=== PATIENT | female | born 1960 | race Caucasian/White ===

== ENCOUNTER 2019-04-24 05:37 | Outpatient (CLI) | payer MEDICARE, MEDICAID ==
[~2019-04-24] VITALS: Ht 170 cm; Wt 90.9 kg
[~2019-04-24 05:37] MED LIST: ESCT10T PO; EZET10TA5 PO; FENO135C PO; HYDR-3583 PO; OMEP40CA36 PO; OXYC-12 PO; TRIA1CAP4 PO; ZOLP10TA5 PO; omeprozole PO
[2019-04-24] MEDS ORDERED: OMEG1CAP24 PO (10:37)
[2019-04-24] MEDS ORDERED: CYCL10TA9 PO (10:37)
[2019-04-24] MEDS ORDERED: EZET10TA5 PO (10:37)
[2019-04-24] MEDS ORDERED: NAPR220C11 PO (10:37)
[2019-04-24] MEDS ORDERED: DOCU100T7 PO (10:37)
[2019-04-24] MEDS ORDERED: FLUO40CA12 PO (10:37)
[2019-04-24] MEDS ORDERED: VITA200T7 PO (10:37)
[2019-04-24] MEDS ORDERED: CBD OIL PO (10:37)
[2019-04-24] MEDS ORDERED: MELA10CA2 PO (10:37)
[2019-04-24] MEDS ORDERED: CHOL200014 PO (10:37)
== END 2019-04-24 10:50 | disposition home or self-care (01) ==
LOC: PREOP 05:37
PROVIDERS: ATTEND Obstetrics & Gynecology
DX: Z01.818 Encounter for other preprocedural examination (principal)

== ENCOUNTER → 2020-11-25 | Outpatient (CLI) | payer MEDICARE ==
[~2020-11-25] VITALS: Ht 170.2 cm; Wt 95.5 kg
[~2020-11-25] MED LIST changes: +BUPR-42 PO; +CBD OIL PO; +CHOL200014 PO; +CYCL10TA9 PO; +DOCU100T7 PO; +EZET10TA17 PO; +FLUO40CA12 PO; +IBUP-1773 PO; +MELA10CA2 PO; +NAPR220C11 PO; +OMEG1CAP24 PO; +OMG1KC PO; +VITA200T7 PO
[2020-11-25 13:08] VITALS: BP 102/71
[2020-11-25 13:51] LABS: BASOPHILS % (AUTO) 1 % (0-10); EOSINOPHILS # (AUTO) 0.2 10^3/uL (0.0-0.3); EOSINOPHILS % (AUTO) 3 % (0-10); HEMATOCRIT 43 % (35-52); HEMOGLOBIN 14.4 g/dL (11.5-16.0); LYMPHOCYTES # (AUTO) 1.9 10^3/uL (1.0-4.0); LYMPHOCYTES % (AUTO) 33 % (12-44); MEAN CORPUSCULAR HEMOGLOBIN 30 pg (25-34); MEAN CORPUSCULAR HGB CONC 33 g/dL (32-36); MEAN CORPUSCULAR VOLUME 88 fL (80-99); MEAN PLATELET VOLUME 9.1 fL (9.0-12.2); MONOCYTES # (AUTO) 0.3 10^3/uL (0.0-1.0); MONOCYTES % (AUTO) 6 % (0-12); NEUTROPHILS # (AUTO) 3.2 10^3/uL (1.8-7.8); NEUTROPHILS % (AUTO) 57 % (42-75); PLATELET COUNT 320 10^3/uL (130-400); WHITE BLOOD COUNT 5.6 10^3/uL (4.3-11.0)
[2020-11-25 14:02] LABS: ALBUMIN 4.3 GM/DL (3.2-4.5)
[2020-11-25 14:03] LABS: CALCIUM 9.8 MG/DL (8.5-10.1)
[2020-11-25 14:05] LABS: TOTAL PROTEIN 7.4 GM/DL (6.4-8.2)
[2020-11-25 14:06] LABS: BILIRUBIN,TOTAL 0.6 MG/DL (0.1-1.0)
[2020-11-25 14:08] LABS: CREATININE SERUM 1.18 MG/DL (0.60-1.30)
[2020-11-25 14:15] LABS: ERYTHROCYTE SEDIMENTATION RATE 13 MM/HR (0-30)
--- NOTE | 2020-11-25 14:39 | Diagnostic Imaging Report ---
INDICATION: Preop knee arthroplasty, degenerative joint disease PA and lateral chest Heart size and pulmonary vascularity are normal. Lungs are clear. There are no effusions or pneumothoraces. IMPRESSION: Negative chest. Dictated by: Dictated on workstation # [id number]
[2020-11-25 15:02] LABS: BILIRUBIN,URINE NEGATIVE (NEGATIVE); CLARITY,URINE CLEAR; COLOR,URINE YELLOW; GLUCOSE, URINE (UA) NEGATIVE (NEGATIVE); KETONES,URINE NEGATIVE (NEGATIVE); LEUKOCYTE ESTERASE ,URINE NEGATIVE (NEGATIVE); NITRITE,URINE NEGATIVE (NEGATIVE); PROTEIN,URINE NEGATIVE (NEGATIVE)
[2020-11-25 15:38] LABS: BACTERIA,URINE NEGATIVE /HPF; SQUAMOUS EPITHELIAL CELL,UR RARE /HPF
== END ==
LOC: PREOP 12:19
PROVIDERS: ATTEND Orthopaedic Surgery
DX: Z01.812 Encounter for preprocedural laboratory examination (principal); M17.12 Unilateral primary osteoarthritis, left knee
CPT/HCPCS: 36415; 71046; 80053; 81000; 85025; 85610; 85652; 87081; 93005

== ENCOUNTER 2020-12-02 05:51 | Inpatient (IN) | payer MEDICARE ==
--- NOTE | 2020-11-20 13:21 | HISTORY AND PHYSICAL ---
DATE OF SERVICE: DATE OF ADMISSION: 12/02/2020. This will be for inpatient admission on 12/02/2020 for left total knee arthroplasty. The patient will require regular inpatient admissions due to comorbidities, pain management, need for physical therapy. HISTORY OF PRESENT ILLNESS: The patient is a 60-year-old female with longstanding progressive left anterior and medial knee pain. She reports pain with activities. She reports significant functional impairment because of the knee. She has undergone treatment with injections with only temporary relief of her symptoms. She reports the pain has been progressive. She denies back pain and denies paresthesias. Radiographs reveal severe medial and patellofemoral arthrosis. Due to functional impairment and failure to improve with conservative measures, the patient has elected to proceed with surgical intervention. REVIEW OF SYSTEMS: No chest pain, no shortness of breath, no dysuria. PAST MEDICAL HISTORY: Rheumatoid arthritis, osteoarthritis, sleep apnea. PAST SURGICAL HISTORY: Appendectomy, knee arthroscopy, right total knee arthroplasty. FAMILY HISTORY: Noncontributory. PRIMARY CARE PROVIDER: Dr. Andrade. MEDICATIONS: Fish oil, vitamin D3, ezetimibe, fluoxetine, bupropion, Zofran, vitamin E, melatonin, cyclobenzaprine, Levsin. ALLERGIES: PENICILLIN. SOCIAL HISTORY: The patient denies alcohol, tobacco use. PHYSICAL EXAMINATION: GENERAL: The patient is well-developed, well-nourished, in no acute distress. HEENT: Normocephalic, atraumatic. Pupils are equal and reactive to light. Oropharynx is clear. NECK: Supple, no lymphadenopathy. LUNGS: Clear to auscultation bilaterally. HEART: Regular rate and rhythm. ABDOMEN: Soft, nontender, nondistended. EXTREMITIES: The left knee demonstrates patellofemoral crepitus and pain with patellar loading. She ambulates with an antalgic gait. She has a slight effusion. She has tenderness along the medial joint line with Bo's. There is no varus valgus laxity. Negative anterior and posterior drawer. Range of motion is 0/2/130. IMPRESSION: Severe left knee osteoarthritis, unresponsive to conservative measures. PLAN: Left total knee arthroplasty. The risks, benefits, options, ramifications and recovery have been discussed at length with the patient. She understands and wishes to proceed. Job ID: [id number] DocumentID: [id number] Dictated Date: 11/20/2020 12:47:17 Director Of Preclinical Research Date: 11/20/2020 13:20:29 Dictated By: JESS LOMBARDI MD
[2020-12-02] VITALS (10 sets, daily range): BP systolic 109–141; BP diastolic 68–95
[~2020-12-02] VITALS: Ht 170.2 cm; Wt 95.5 kg
[2020-12-02] MEDS ORDERED: CEFUROXIME INJECTION 1,500 MG in WATER (STERILE) FOR INJECTION 15 ML IV ONE (06:15)
[2020-12-02] MEDS ORDERED: LACTATED RINGERS 1,000 ML IV PRN (06:15)
[2020-12-02] MEDS ORDERED: BUPIVACAINE 0.5% 30 ML (SENSORCAINE) VIAL ONE (06:49)
[2020-12-02] MEDS ORDERED: fentaNYL INJ 100 MCG/2 ML AMP ONE (06:49)
[2020-12-02] MEDS ORDERED: LIDOCAINE PF 2% 5 ML (XYLOCAINE) VIAL ONE (06:49)
[2020-12-02] MEDS ORDERED: MIDAZOLAM 2 MG/2 ML (VERSED) VIAL ONE (06:49)
[2020-12-02] MEDS ORDERED: BUPIVACAINE 0.25% 30 ML (SENSORCAINE) VIAL ONE (06:53)
[2020-12-02] MEDS ORDERED: diphenhydrAMINE 50 MG/ML INJ (BENADRYL) IVP PRN (07:15)
[2020-12-02] MEDS ORDERED: morphine PCA 100 MG/100 ML BAG IV PRN (07:15)
[2020-12-02] MEDS ORDERED: ACETAMINOPHEN 325 MG TABLET PO PRN (07:15)
[2020-12-02] MEDS ORDERED: ONDANSETRON 4 MG/2 ML (SDV) Z0FRAN IVP PRN (07:15)
--- NOTE | 2020-12-02 07:33 | Progress Note-Pre Operative ---
Pre-Operative Progress Note H&P Reviewed The H&P was reviewed, patient examined and no changes noted. Date Seen by Provider: December 02, 2020 Time Seen by Provider: 07:22 Date H&P Reviewed: December 02, 2020 Time H&P Reviewed: 07:11 Pre-Operative Diagnosis: left knee primary osteoarthritis JESS LOMBARDI MD December 02, 2020 07:33
--- NOTE | 2020-12-02 07:34 | Progress Note-Post Operative ---
Post-Operative Progess Note Surgeon (s)/Galvanometer Assembler (s) Surgeon JESS LOMBARDI MD Galvanometer Assembler: Eric Moreno Pre-Operative Diagnosis left knee primary osteoarthritis Post-Operative Diagnosis left knee primary osteoarthritis Procedure & Operative Findings Date of Procedure 12/02/20 Procedure Performed/Findings left total knee arthroplasty Anesthesia Type GETA Estimated Blood Loss Estimated blood loss (mL): minimal Specimens/Packing Specimens Removed none Packing: none JESS LOMBARDI MD December 02, 2020 07:34
--- NOTE | 2020-12-02 07:37 | D/C HH Face to Face Order ---
D/C Face to Face Orders Reconcile Patient Problems Problems Reviewed?: Yes Instructions for Patient Via [email or web address], Patient Instructions/FollowUp: three weeks Physician to follow Patient: three weeks Discharge Diet for Home: Regular Diet Patient Data-Allergies,Ht & Wt Patient Allergies: Coded Allergies: Penicillins (Verified Allergy, Mild, RASH, 12/02/20) amphetamine (Verified Adverse Reaction, Unknown, 12/02/20) dextroamphetamine (Verified Adverse Reaction, Unknown, 12/02/20) gemfibrozil (Verified Adverse Reaction, Unknown, 12/02/20) sertraline (Verified Adverse Reaction, Unknown, 12/02/20) trazodone (Verified Adverse Reaction, Unknown, 12/02/20) Home Health Need/Face to Face Date of Face to Face: December 02, 2020 Clinical Findings: Instability, Muscle weakness, Pain with ambulation, Unsteady gait I have seen Pt fmpj-[id number]-[id number]: Yes Discharged To: Home Diagnosis/Conditions: left total knee arthroplasty Patient is Homebound due to: Tani fall risk due to instabilty, Muscle weakness, Pain w/ambulation Homebound Status Due to the above stated illness, injury or surgical procedure (medical condition or diagnosis) and associated clinical findings, the patient is homebound because of his/her inability to leave home except with aid of a sup portive device and/or person AND leaving the home requires a considerable and taxing effort or is medically contraindicated. Pt req the following assistanc: Walker Home Health Nursing Orders Home Health Services Order: Physical Therapy-Evaluate & Treat DC left knee anderson and apply steri strips 12/16/20 Home Health Infusion Therapy Line Start Date: December 02, 2020 Therapy Orders Therapy Orders: Physical Therapy, PT to assess for OT Therapy Specific Orders: Eval assistive deivces, Teach enviro modifications/safety, Gait training, Increase strength/endurance, Provider maintenance therapy, Restore ROM Certify Stmt I certify that this patient is under my care and that I, a nurse practitioner or a physician; a sales operations assistant working with me, had a face to face encounter that - meets the physician face to face encounter requirements with this patient as dated. JESS LOMBARDI MD December 02, 2020 07:36
[2020-12-02] MEDS ORDERED: proPOfol 200 MG/20 ML (DIPRIVAN) VIAL IV ONE (07:47)
[2020-12-02] MEDS ORDERED: TRANEXAMIC ACID 100 MG/ML 10 ML INJECTION ONE (07:47)
[2020-12-02] MEDS ORDERED: SEVOFLURANE (ULTANE) 15 ML INHAL SOLN ONE ×7 (07:47→09:10)
[2020-12-02] MEDS ORDERED: INTRA-ARTICULAR IU ONE ×10 (08:00→08:15)
--- NOTE | 2020-12-02 09:54 | Diagnostic Imaging Report ---
INDICATION: Left knee surgery. Time of exam: 9:31 AM Two views of the left knee demonstrate postoperative changes of total knee arthroplasty. Prosthetic elements appear to be in good position. No fracture is seen. There are overlying skin anderson noted. IMPRESSION: Satisfactory postop appearance to the left knee. Dictated by: Dictated on workstation # [id number]
--- NOTE | 2020-12-02 10:18 | Progress Note ---
Standard Progress Note Progress Notes/Assess & Plan Date Seen by a Provider: December 02, 2020 Time Seen by a Provider: 10:00 Progress/Assessment & Plan post op check no complaints radiographs--HW well positioned without fracture LLE--intact DF and PF with sensation intact throughout. 2 plus DP pulse with brisk cap refill s/p LTKA mobilize as able JESS LOMBARDI MD December 02, 2020 10:18
[2020-12-02] MEDS: oxyCODONE/APAP 5/325MG (PERCOCET 5) TABLET PO PRN (12:20)
[2020-12-02] MEDS: SENNA W/DOCUSATE (SENOKOT S) TABLET PO SCH ×2 (12:21→20:39)
[2020-12-02] MEDS: NS IV 1000 ML 1,000 ML IV SCH ×2 (12:22→22:37)
--- NOTE | 2020-12-02 13:51 | OPERATIVE REPORT ---
DATE OF SERVICE: 12/02/2020 PREOPERATIVE DIAGNOSIS: Left knee primary osteoarthritis. POSTOPERATIVE DIAGNOSIS: Left knee primary osteoarthritis. PROCEDURE: Left total knee arthroplasty. SURGEON: Phil Hathaway MD RETAIL AGENT: Eric Moreno, who assisted throughout the procedure and closed the incision. ANESTHESIA: General endotracheal by Tu Ramirez CRNA. TOURNIQUET TIME: Approximately 70 minutes at 300 mmHg. ESTIMATED BLOOD LOSS: Minimal. DRAINS: None. COMPLICATIONS: None. POSTOPERATIVE PLAN: Routine protocol. MATERIALS: Microport cemented size 3 femur, cemented size 3 tibia with 10 mm insert and a cemented 29 patellar button. The patient was transferred to the recovery room awake and stable condition. STATEMENT OF MEDICAL NECESSITY: The patient is a 60-year-old female with longstanding progressive left knee pain. Radiographs revealed severe tricompartmental osteoarthritis. She has undergone treatment with injections, anti-inflammatories and rest without relief. She reported progressive loss of function and because of this, elected to proceed with surgical intervention. DESCRIPTION OF PROCEDURE: After risks and benefits of procedure were discussed and questions were answered, an informed consent was signed and placed on the chart. The operative site was confirmed in the preoperative holding area initialed by the surgeon. The patient was then transferred to the operating room. After adequate levels of general endotracheal anesthetic were obtained, a timeout was called, confirming the operative site. The left lower extremity was prepped and draped in the usual sterile fashion. With the leg elevated and the knee flexed, the tourniquet was inflated to 300 mmHg. Standard anterior approach was utilized. Hemostasis was obtained with cautery. Medial parapatellar arthrotomy was performed leaving 1 cm cuff on the patella for later reattachment. A portion of the fat pad was resected. The ACL was resected. Subperiosteal release was performed on the proximal medial tibia being careful to stay on the bony surface. Intramedullary guide was passed into the femur. The distal cutting block was placed and distal cut was made. The femur was sized to a size 3. The 3 cutting block was placed parallel to the epicondylar axis and cuts were made from posterior to anterior. Subperiosteal release was then carefully performed on the posterior distal femur, being careful to stay on the bony surface. Intramedullary guide was then passed into the tibia. The cutting block was placed. The drop nicolasa transected the intermalleolar axis and the cut was made. The three baseplate was placed and prepared with the drill and keel punch. The trials were inserted. The trochlear cut was made. The patella was then prepared by resecting 10 mm off the undersurface using the freehand technique. The peg guide was placed and the peg holes were drilled. The patellar trial was placed. Knee was then taken through range of motion. The patella tracked well and was stable. The knee demonstrated full extension and greater than 120 degrees of flexion with gravity. There was no anterior/posterior or medial/lateral laxity in flexion or extension. The trials were removed. The joint was irrigated with pulse lavage. Bone ends were irrigated and dried. The tibial baseplate was cemented into position. The superior surface was irrigated and dried and the polyethylene insert was placed. Distal femur was irrigated and dried and the femoral prosthesis was cemented into position. The knee was brought out into full extension until the cement had cured. The undersurface of patella was irrigated and dried and the patellar button was cemented into position. The periarticular block was placed in the medial and lateral capsule extensor mechanism and subcutaneous tissues. Once the cement had cured, the knee was taken through range of motion. Full extension was easily obtained, 120 degrees of flexion with gravity was easily obtained. There was no anterior/posterior or medial/lateral laxity in flexion or extension. The patella tracked well. The joint was further irrigated with pulse lavage and the arthrotomy was closed with #2 Tevdek in tpxfue-hb-hzbnv interrupted fashion. The knee was flexed, patella was stable and the repair was stable. Subcutaneous tissues were irrigated with pulse lavage using a total of 6 liters throughout the procedure. A 0 Vicryl was used to deep subcutaneous tissue, 2-0 Vicryl for the superficial subcutaneous tissue, anderson used on the skin. A soft dressing was applied. The tourniquet was deflated and the patient was transferred to the recovery room awake and in stable condition. Job ID: [id number] DocumentID: [id number] Dictated Date: 12/02/2020 09:20:38 Digital Imager Date: 12/02/2020 13:50:37 Dictated By: PHIL HATHAWAY MD
--- NOTE | 2020-12-02 14:01 | Physical Therapy Evaluation ---
PT Evaluation-General Medical Diagnosis Admission Date December 02, 2020 at 05:51 Medical Diagnosis: left TKA Onset Date: December 02, 2020 Therapy Diagnosis Therapy Diagnosis: impaired mobility, strength, endurance, ROM Precautions Precautions/Isolations: Standard Precautions Weight Bear Status Left Lower Extremity: Left Weight Bearing/Tolerated Referral Physician: Josh Reason for Referral: Evaluation/Treatment Medical History Additional Medical History PAST MEDICAL HISTORY: Rheumatoid arthritis, osteoarthritis, sleep apnea. PAST SURGICAL HISTORY: Appendectomy, knee arthroscopy, right total knee arthroplasty. Reviewed History: Yes Social History Current Living Status: Entry Into Home: Stairs With Railing PT Steps Into Home: 2 Prior Prior Level of Function SCALE: Activities may be completed with or without assistive devices. 9-Hijigflvrg-pyvkyeg completes the activity by him/herself with no assistance from a helper. 5-Set-up or Clean-up Assistance-helper sets up or cleans up; patient completes activity. Leland assists only prior to or following the activity. 4-Supervision or Touching Assistance-helper provides verbal cues and/or touching/steadying and/or contact guard assistance as patient completes activity. Assistance may be provided throughout the activity or intermittently. 3-Partial/Moderate Assistance-helper does LESS THAN HALF the effort. Leland lifts, holds or supports trunk or limbs, but provides less than half the effort. 2-Substantial/Maximal Assistance-helper does MORE THAN HALF the effort. Leland lifts or holds trunk or limbs and provides more than half the effort. 8-Jjldrejhg-yftgqn does ALL the effort. Patient does none of the effort to complete the activity. Or, the assistance of 2 or more helpers is required for the patient to complete the activity. If activity was not attempted, code reason: 7-Patient Refused. 9-Not Applicable-not attempted and the patient did not perform the activity before the current illness, exacerbation or injury. 10-Not Attempted due to Environmental Limitations-(lack of equipment, weather restraints, etc.). 88-Not Attempted due to Medical Conditions or Safety Concerns. Bed Mobility: 6 Transfers (B,C,W/C): 6 Gait: 6 Stairs: 6 Indoor Mobility (Ambulation): Independent Stairs: Independent PT Evaluation-Current Subjective Patient in bed pre tx, agrees to PT, has 7/10 left knee pain , patient has had some increased bleeding from her left knee, nurse notified Pt/Family Goals to be independent at home Objective Patient Orientation: Person, Place, Situation Attachments: Polar Pack, IV ROM/Strength ROM Lower Extremities left knee flexion 90 degrees, extension +7 degrees Sensory Vision: Wears Glasses Hearing: Functional Sensation Right Lower Extremit: Intact Sensation Left Lower Extremity: Intact Transfers Roll Left to Right (QC): 6 Sit to Lying (QC): 6 Lying to Sitting/Side of Bed(Q: 6 Sit to Stand (QC): 4 Chair/Xda-dc-Mpkrw Xfer(QC): 4 Gait Does the Patient Walk?: Yes Mode of Locomotion: Walk Anticipated Mode of Locomotion: Walk Walk 10 feet (QC): 4 Distance: 15' Gait Assistive Device: FWW Comments/Gait Description slow, antalgic, maintains a slightly flexed left knee, no buckling Balance Sitting Static: Normal Sitting Dynamic: Normal Standing Static: Good Standing Dynamic: Fair Treatment LLE TKA protocol x10 (AP, QS, HS, SAQ, SLR), CPM donned and fit to leg and set to 60/-2, Assessment/Needs Patient in bed post tx with nurse call, phone, tray, all n eeds met. Patient needs CGA with transfers and ambulation, slightly unsteady but no LOB Rehab Potential: Fair PT Halfway Goals Halfway Goals PT Special Events Director Goals Time Frame: Dec 09, 2020 Roll Left & Right (QC): 6 Sit to Lying (QC): 6 Lying-Sitting on Side/Bed(QC): 6 Sit to Stand (QC): 5 Chair/Ycr-qo-Shmoq Xfer(QC): 5 Walk 10 feet (QC): 5 Walk 50ft with 2 Turns (QC): 5 Walk 150 ft (QC): 5 1 Step (curb) (QC): 5 4 Steps (QC): 5 PT Plan Problem List Problem List: Activity Tolerance, Functional Strength, Safety, Balance, Gait, Transfer, Bed Mobility, ROM Treatment/Plan Treatment Plan: Continue Plan of Care Treatment Plan: Bed Mobility, Education, Functional Activity Jarrett, Functional Strength, Gait, Safety, Therapeutic Exercise, Transfers Treatment Duration: Dec 09, 2020 Frequency: 11 times per week Estimated Hrs Per Day: .25 hour per day Patient and/or Family Agrees t: Yes Safety Risks/Education Patient Education: Gait Training, Transfer Techniques, Reviewed Use of Ice, Correct Positioning, Safety Issues Teaching Recipient: Patient Teaching Methods: Demonstration, Discussion Response to Teaching: Reinforcement Needed Discharge Recommendations Plan Patient will perform bed mobility and transfer training, balance and endurance training ,functional strengthening, stair training, gait training, and education, to improve functional mobility and independence at home. Therapy Discharge Recommendati: Home & Family, Post Acute PT Time/GCodes Time In: 1310 Time Out: 1332 Total Billed Treatment Time: 22 Total Billed Treatment 1 visit TARYN 22' MADIE DSOUZA PT December 02, 2020 14:01
--- NOTE | 2020-12-02 14:02 | Occupational Therapy Eval ---
OT Evaluation-General/PLF Medical Diagnosis Admission Date December 02, 2020 at 05:51 Medical Diagnosis: Left TKR Onset Date: December 02, 2020 Therapy Diagnosis Therapy Diagnosis: Decreased ADL skills Precautions Precautions/Isolations: Standard Precautions Weight Bear Status Weight Bearing Restriction: Weight Bearing/Tolerated Referral Physician: Mag Referral Reason: Activity Tolerance, Self Care, Evaluation/Treatment, Strengthening/ROM Medical History Additional Medical History Right TKR Current History Elective knee replacement Reviewed History: Yes Social History Home: Single Level Current Living Status: Other Family Entry Into Home: Stairs With Railing Steps Into Home: 2 Pt. is currently taking care of her mother. ADL-Prior Level of Function SCALE: Activities may be completed with or without assistive devices. 8-Rgudsmcxig-vzfztjo completes the activity by him/herself with no assistance from a helper. 5-Set-up or Clean-up Assistance-helper sets up or cleans up; patient completes activity. Sy[place]ore assists only prior to or following the activity. 4-Supervision or Touching Assistance-helper provides verbal cues and/or touching/steadying and/or contact guard assistance as patient completes activity. Assistance may be provided throughout the activity or intermittently. 3-Partial/Moderate Assistance-helper does LESS THAN HALF the effort. Sycamore lifts, holds or supports trunk or limbs, but provides less than half the effort. 2-Substantial/Maximal Assistance-helper does MORE THAN HALF the effort. Sycamore lifts or holds trunk or limbs and provides more than half the effort. 7-Oalqnzufo-olwezv does ALL the effort. Patient does none of the effort to complete the activity. Or, the assistance of 2 or more helpers is required for the patient to complete the activity. If activity was not attempted, code reason: 7-Patient Refused. 9-Not Applicable-not attempted and the patient did not perform the activity before the current illness, exacerbation or injury. 10-Not Attempted due to Environmental Limitations-(lack of equipment, weather restraints, etc.). 88-Not Attempted due to Medical Conditions or Safety Concerns. ADL PLOF Comments Pt. is currently independent at home with daily tasks. She takes care of her mother. She does not use an assistive device, but states that she has one. She drives and is independent with cooking/cleaning. Self Care: Independent Functional Cognition: Independent DME/Equipment Comments Walker [address] Self: Yes OT Current Status Subjective Pt. does not report pain. Mental Status/Objective Patient Orientation: Person, Place Attachments: Oxygen Current Upper Extremity ROM WFL ADL-Treatment Toileting Hygiene (QC): 3 (Max assist. Pt. requires assistance in stance to doff brief. After urinating, she is able to cleanse front while seated, but requires assistance to cleanse rear. Max assist to don fresh brief.) Other Treatments Pt. has returned from surgery. States that she needs to use BSC immediately. Nursing okay for OT to get pt. up. Transfers supine-sit with mod assist. Sit- stand with mod assist and cues. Slow steps with walker to turn to commode. After toileting, pt. stands from commode with mod assist and is able to take steps back to bed. Mod assist for sit-supine. All needs met back in bed. Polar pack placed and SCDs in place. Education OT Patient Education: Correct positioning, Modified ADL techniques, Progress toward Goal/Update tx plan, Purpose of tx/functional activities, Reviewed precautions, Rehab process, Transfer techniques Teaching Recipient: Patient Teaching Methods: Demonstration, Discussion Response to Teaching: Verbalize Understanding, Return Demonstration OT Short Term Goals Short Term Goals Time Frame: December 02, 2020 OT Shelter Goals Cook Short Order Goals Time Frame: Dec 16, 2020 Eating (QC): 6 Oral Hygiene (QC): 6 Toileting Hygiene (QC): 6 Shower/Bathe Self (QC): 4 Upper Body Dressing (QC): 6 Lower Body Dressing (QC): 4 On/Off Footwear (QC): 6 Additional Goals: 1-Demonstrate ADL Tasks, 2-Verbalize Understanding, 3- ImproveStrength/Jarrett 1=Demonstrate adherence to instructed precautions during ADL tasks. 2=Patient will verbalize/demonstrate understanding of assistive devices/modifications for ADL. 3=Patient will improve strength/tolerance for activity to enable patient to perform ADL's. OT Education/Plan Problem List/Assessment Assessment: Decreased Activ Tolerance, Dependent Transfers, Impaired Bed Mobility, Impaired Funct Balance, Impaired I ADL's, Impaired Self-Care Skills Discharge Recommendations Plan/Recommendations: Continue POC Therapy Discharge Recommendati: Home & Family, Post Acute OT Equpiment Recommendations-D/C: Hip Kit Treatment Plan/Plan of Care Treatment,Training & Education: Yes Patient would benefit from OT for education, treatment and training to promote independence in ADL's, mobility, safety and/or upper extremity function for ADL's. Plan of Care: ADL Retraining, Functional Mobility, UE Funct Exercise/Act Treatment Duration: Dec 16, 2020 Frequency: 5 times per week Estimated Hrs Per Day: .25 hour per day Agreement: Yes Rehab Potential: Good Time/GCodes Start Time: 11:30 Stop Time: 11:45 Total Time Billed (hr/min): 15 Billed Treatment Time 1, CHIP COOK OT December 02, 2020 14:02
[2020-12-02] MEDS: CEFUROXIME INJECTION 750 MG in WATER (STERILE) FOR INJECTION 10 ML IV SCH ×2 (16:04→23:38)
[2020-12-03] VITALS (7 sets, daily range): BP systolic 114–145; BP diastolic 61–78
[2020-12-03] MEDS: NS IV 1000 ML 1,000 ML IV SCH ×2 (01:42→13:36)
[2020-12-03] MEDS: MULTIVIT W/MINERALS TAB (THERAGRAN M) PO SCH (05:43)
[2020-12-03 05:58] LABS: HEMOGLOBIN 10.4 g/dL (11.5-16.0)
--- NOTE | 2020-12-03 07:09 | Anesthesia-General Post-Op ---
General Patient Condition Mental Status/LOC: Same as Preop Cardiovascular: Satisfactory Nausea/Vomiting: Absent Respiratory: Satisfactory Pain: Controlled Complications: Absent Post Op Complications Complications None Follow Up Care/Instructions Patient Instructions None needed. Anesthesia/Patient Condition Patient Condition Patient is doing well, no complaints, stable vital signs, no apparent adverse anesthesia problems. No complications reported per nursing. BINTA ESCAMILLA CRNA December 03, 2020 07:09
[2020-12-03] MEDS: SENNA W/DOCUSATE (SENOKOT S) TABLET PO SCH ×2 (07:16→21:05)
--- NOTE | 2020-12-03 08:04 | Progress Note ---
Standard Progress Note Progress Notes/Assess & Plan Date Seen by a Provider: December 03, 2020 Time Seen by a Provider: 08:03 Progress/Assessment & Plan post op check no complaints radiographs--HW well positioned without fracture LLE--intact DF and PF with sensation intact throughout. 2 plus DP pulse with brisk cap refill s/p LTKA mobilize as able Final Diagnosis no complaints Vital Signs Date Time Temp Pulse Resp B/P (MAP) Pulse Ox O2 Delivery O2 Flow Rate FiO2 12/03/20 03:30 36.1 103 18 114/61 (78) 95 Room Air 12/03/20 00:19 36.0 85 16 114/69 (84) 97 Room Air 12/02/20 21:00 Room Air 12/02/20 20:00 36.9 106 20 112/74 (87) 97 Room Air 12/02/20 16:00 37.4 117 20 109/73 (85) 93 Room Air 12/02/20 14:11 36.6 20 12/02/20 10:20 36.6 102 20 133/68 (89) 96 Room Air 12/02/20 10:15 Room Air 12/02/20 10:08 15 137/86 (103) 95 Room Air 12/02/20 10:00 36.4 18 135/84 (101) 98 Room Air 12/02/20 09:50 18 141/77 (98) 100 OxyMask 10 12/02/20 09:50 OxyMask 10 12/02/20 09:40 28 132/89 (103) 97 Face Tent 10 12/02/20 09:35 OxyMask 10 12/02/20 09:30 20 121/69 (86) 92 OxyMask 10 12/02/20 09:20 37.9 20 136/95 (109) 92 Face Tent 10 12/02/20 09:20 OxyMask 10 I & O 12/03/20 06:59 Intake Total 1855 ml Balance 1855 ml Laboratory Tests Test 12/03/20 05:48 Range/Units Hemoglobin 10.4 L 11.5-16.0 g/dL Hematocrit 31 L 35-52 % LLE--dressing intact.NVI distally. Intact DF and PF of toes and ankle Neg Aurelio's s/p LTKA PT/OT JESS LOMBARDI MD December 03, 2020 08:04
[2020-12-03] MEDS: ASPIRIN E.C. 81 MG (ECOTRIN) TAB PO SCH (08:17)
[2020-12-03] MEDS: oxyCODONE/APAP 5/325MG (PERCOCET 5) TABLET PO PRN ×3 (08:18→17:50)
[2020-12-03] MEDS: ENOXAPARIN 30 MG/0.3 ML (LOVENOX) SYR SC SCH ×2 (08:18→21:06)
--- NOTE | 2020-12-03 09:46 | Occupational Ther Daily Note ---
OT Current Status-Daily Note Subjective Pt alert, sitting in recliner. Pt c/o increased pain with L knee. Mental Status/Objective Patient Orientation: Person, Place, Time, Situation Attachments: IV ADL-Treatment 2nd session([id number]): Set up for sponge bath and oral care sitting in recliner. Pt able to reach all upper body and upper legs, assist for all ileana area, buttocks and lower legs. Pt c/o increase pain and tightness in L knee which decreased mobility and functional movement for dressing/bathing. Pt completed oral care by self after set up. Max A for sit to stand due to increased pain and decreased mobility of L knee. Pt introduced to AE for lower body dressing. Pt declined to attempt using loan servicing representative for briefs, but verbalized understanding after demonstration. Pt demonstrated understanding with sock aide on R foot, but declined to complete on L foot. Pt able to set up own meal and use regular utensils to eat. After session, pt sitting in recliner with call light/phone in reach. All needs met in room. Therapy Code Descriptions/Definitions Functional [place] Measure: 0=Not Assessed/NA 4=Minimal Assistance 1=Total Assistance 5=Supervision or Setup 2=Maximal Assistance 6=Modified [place] 3=Moderate Assistance 7=Complete IndependenceSCALE: Activities may be completed with or without assistive devices. 6-Uryswoqgnl-veozjvj completes the activity by him/herself with no assistance from a helper. 5-Set-up or Clean-up Assistance-helper sets up or cleans up; patient completes activity. [place] assists only prior to or following the activity. 4-Supervision or Touching Assistance-helper provides verbal cues and/or touching/steadying and/or contact guard assistance as patient completes activity. Assistance may be provided throughout the activity or intermittently. 3-Partial/Moderate Assistance-helper does LESS THAN HALF the effort. [place] lifts, holds or supports trunk or limbs, but provides less than half the effort. 2-Substantial/Maximal Assistance-helper does MORE THAN HALF the effort. [place] lifts or holds trunk or limbs and provides more than half the effort. 9-Fmsrgejen-kuvuxg does ALL the effort. Patient does none of the effort to complete the activity. Or, the assistance of 2 or more helpers is required for the patient to complete the activity. If activity was not attempted, code reason: 7-Patient Refused. 9-Not Applicable-not attempted and the patient did not perform the activity before the current illness, exacerbation or injury. 10-Not Attempted due to Environmental Limitations-(lack of equipment, weather restraints, etc.). 88-Not Attempted due to Medical Conditions or Safety Concerns. Eating (QC): 6 Oral Hygiene (QC): 5 Shower/Bathe Self (QC): 3 Upper Body Dressing (QC): 3 (Treating hospital gown as shirt, pt requires min A to thread R UE due to IV.) Lower Body Dressing (QC): 2 On/Off Footwear: 2 1st attempt([id number]): Pt requests to participate in OT session at a later time due to getting breakfast late in the morning and wanting to eat before completing OT. NEELY explained that it would be after lunch, pt okay with this. Discussed role of OT and different types of AE for lower body dressing. Pt interested in AE. Will see pt after lunch. Call light/phone in reach. All needs met. OT Short Term Goals Short Term Goals Time Frame: December 02, 2020 OT Web Analyst Goals Prison Goals Time Frame: Dec 16, 2020 Eating (QC): 6 Oral Hygiene (QC): 6 Toileting Hygiene (QC): 6 Shower/Bathe Self (QC): 4 Upper Body Dressing (QC): 6 Lower Body Dressing (QC): 4 On/Off Footwear (QC): 6 Additional Goals: 1-Demonstrate ADL Tasks, 2-Verbalize Understanding, 3- ImproveStrength/Jarrett 1=Demonstrate adherence to instructed precautions during ADL tasks. 2=Patient will verbalize/demonstrate understanding of assistive devices/modifications for ADL. 3=Patient will improve strength/tolerance for activity to enable patient to perform ADL's. OT Education/Plan Problem List/Assessment Assessment: Decreased Activ Tolerance, Impaired Self-Care Skills Discharge Recommendations Plan/Recommendations: Continue POC Treatment Plan/Plan of Care Patient would benefit from OT for education, treatment and training to promote independence in ADL's, mobility, safety and/or upper extremity function for A DL's. Plan of Care: ADL Retraining, Functional Mobility, UE Funct Exercise/Act Treatment Duration: Dec 16, 2020 Frequency: 5 times per week Estimated Hrs Per Day: .25 hour per day Agreement: Yes Rehab Potential: Good Time/GCodes Start Time: 09:25 (1115) Stop Time: 09:33 (1145) Total Time Billed (hr/min): 43 Billed Treatment Time 1 visit-(): FA 1 (8 min) 1 visit-([id number]): ADL 2 (30 min) PEYTON OLIVIA December 03, 2020 09:46
--- NOTE | 2020-12-03 10:41 | Physical Therapy Daily Note ---
PT Daily Note-Current Subjective Patient request toilet use. Patient agrees to PT. Pain Numeric Pain Scale: 5-Moderate Pain Location: Left Location Body Site: Knee Pain Description: Acute Mental Status Patient Orientation: Normal For Age Attachments: IV Transfers SCALE: Activities may be completed with or without assistive devices. 0-Vdcqoufiti-gvbbrsv completes the activity by him/herself with no assistance from a helper. 5-Set-up or Clean-up Assistance-helper sets up or cleans up; patient completes activity. [place] assists only prior to or following the activity. 4-Supervision or Touching Assistance-helper provides verbal cues and/or touching/steadying and/or contact guard assistance as patient completes activity. Assistance may be provided throughout the activity or intermittently. 3-Partial/Moderate Assistance-helper does LESS THAN HALF the effort. [place] lifts, holds or supports trunk or limbs, but provides less than half the effort. 2-Substantial/Maximal Assistance-helper does MORE THAN HALF the effort. [place] lifts or holds trunk or limbs and provides more than half the effort. 0-Sfvktakhz-rdmhqk does ALL the effort. Patient does none of the effort to complete the activity. Or, the assistance of 2 or more helpers is required for the patient to complete the activity. If activity was not attempted, code reason: 7-Patient Refused. 9-Not Applicable-not attempted and the patient did not perform the activity before the current illness, exacerbation or injury. 10-Not Attempted due to Environmental Limitations-(lack of equipment, weather restraints, etc.). 88-Not Attempted due to Medical Conditions or Safety Concerns. Lying to Sitting/Side of Bed(Q: 4 (SBA) Sit to Stand (QC): 4 (CGA with VC's to weight bear left LE and push off bed) Chair/Ual-er-Xmmov Xfer(QC): 4 (SBA) Toilet Transfer (QC): 4 (SBA) Weight Bearing Left Lower Extremity: Left Weight Bearing/Tolerated Gait Training Does the Patient Walk?: Yes Distance: 150' Walk 10 feet (QC): 4 (SBA) Walk 50 ft with 2 Turns(QC): 4 (SBA) Walk 150 ft (QC): 4 (SBA) Gait Assistive Device: FWW very slow and antalgic Exercises Seated Therapy Exercises: Ankle pumps, Long arc quads, Hip flexion Seated Reps: 15 (x 2 sets) Assessment Patient tolerated treatment well and is up in recliner with needs met. AROM left knee flexion/extension WFL on this date. PT Intermediate Goals Netsuite Consultant Goals PT Netsuite Consultant Goals Time Frame: Dec 09, 2020 Roll Left & Right (QC): 6 Sit to Lying (QC): 6 Lying-Sitting on Side/Bed(QC): 6 Sit to Stand (QC): 5 Chair/Njc-pj-Aucyi Xfer(QC): 5 Walk 10 feet (QC): 5 Walk 50ft with 2 Turns (QC): 5 Walk 150 ft (QC): 5 1 Step (curb) (QC): 5 4 Steps (QC): 5 PT Plan Treatment/Plan Treatment Plan: Continue Plan of Care Treatment Plan: Bed Mobility, Education, Functional Activity Jarrett, Functional Strength, Gait, Safety, Therapeutic Exercise, Transfers Treatment Duration: Dec 09, 2020 Frequency: 11 times per week Estimated Hrs Per Day: .25 hour per day Patient and/or Family Agrees t: Yes Time/GCodes Time In: 830 Time Out: 853 Total Billed Treatment Time: 23 Total Billed Treatment 1 visit EX 11 min GT 12 min KENDALL THOMAS PT December 03, 2020 10:41
--- NOTE | 2020-12-03 14:23 | Physical Therapy Daily Note ---
PT Daily Note-Current Subjective Patient initially declined PT due to left knee pain (10/10). Patient agrees after PT encouragement. Pain Numeric Pain Scale: 10-Worst Possible Pain Location: Left Location Body Site: Knee Pain Description: Acute Comment: pain meds and ENTERTAINMENT PRODUCTION PROFESSIONAL utilized Mental Status Patient Orientation: Normal For Age Attachments: IV Transfers SCALE: Activities may be completed with or without assistive devices. 6-Aaiadnpvnl-qyqlgru completes the activity by him/herself with no assistance from a helper. 5-Set-up or Clean-up Assistance-helper sets up or cleans up; patient completes activity. [place] assists only prior to or following the activity. 4-Supervision or Touching Assistance-helper provides verbal cues and/or touching/steadying and/or contact guard assistance as patient completes activity. Assistance may be provided throughout the activity or intermittently. 3-Partial/Moderate Assistance-helper does LESS THAN HALF the effort. [place] lifts, holds or supports trunk or limbs, but provides less than half the effort. 2-Substantial/Maximal Assistance-helper does MORE THAN HALF the effort. [place] lifts or holds trunk or limbs and provides more than half the effort. 3-Cvrzwomtm-inbpwr does ALL the effort. Patient does none of the effort to complete the activity. Or, the assistance of 2 or more helpers is required for the patient to complete the activity. If activity was not attempted, code reason: 7-Patient Refused. 9-Not Applicable-not attempted and the patient did not perform the activity before the current illness, exacerbation or injury. 10-Not Attempted due to Environmental Limitations-(lack of equipment, weather restraints, etc.). 88-Not Attempted due to Medical Conditions or Safety Concerns. Sit to Lying (QC): 4 (SBA) Lying to Sitting/Side of Bed(Q: 4 (SBA) Sit to Stand (QC): 4 (SBA) Weight Bearing Left Lower Extremity: Left Weight Bearing/Tolerated Gait Training Does the Patient Walk?: Yes Distance: 275' Walk 10 feet (QC): 4 (SBA) Walk 50 ft with 2 Turns(QC): 4 (SBA) Walk 150 ft (QC): 4 (SBA) Gait Assistive Device: FWW slow and antalgic/noted minimal weight bearing left LE due to pain with PT instr ucting patient to weight bear bilaterally Exercises Supine Ex: Ankle pumps, Quad Set, Heel Slides, Straight leg raise Supine Reps: 12 Seated Therapy Exercises: Long arc quads Standing Reps: 15 Treatments CPM 0-74 degrees and polar pack in place left LE Assessment Patient tolerated treatment well and is in bed with CPM in place. Patient requires much encouragement to participate with therapy. Patient instructed, again, to ask for pain pills every 2 hours. Patient voices understanding. PT Jail Goals Jail Goals PT Blacksmith Helper Goals Time Frame: Dec 09, 2020 Roll Left & Right (QC): 6 Sit to Lying (QC): 6 Lying-Sitting on Side/Bed(QC): 6 Sit to Stand (QC): 5 Chair/Txs-gx-Mhkar Xfer(QC): 5 Walk 10 feet (QC): 5 Walk 50ft with 2 Turns (QC): 5 Walk 150 ft (QC): 5 1 Step (curb) (QC): 5 4 Steps (QC): 5 PT Plan Treatment/Plan Treatment Plan: Continue Plan of Care Treatment Plan: Bed Mobility, Education, Functional Activity Jarrett, Functional Strength, Gait, Safety, Therapeutic Exercise, Transfers Treatment Duration: Dec 09, 2020 Frequency: 11 times per week Estimated Hrs Per Day: .25 hour per day Patient and/or Family Agrees t: Yes Time/GCodes Time In: 1310 Time Out: 1335 Total Billed Treatment Time: 25 Total Billed Treatment 1 visit EX 10 min GT 15 min KENDALL THOMAS PT December 03, 2020 14:23
[2020-12-03] MEDS ORDERED: LORATADINE (CLARITIN) 10 MG TAB PO NR ×2 (18:45→21:00)
--- NOTE | 2020-12-03 19:13 | Consultation ---
History of Present Illness History of Present Illness Patient Consulted On(delmar/time) 12/03/20 19:06 Date Seen by Provider: December 03, 2020 Time Seen by Provider: 12:30 History of Present Illness This is a 60 year old female who underwent a left total knee arthroplasty for advanced osteoarthritis of the left knee. She has a history of NORAH, BAUTISTA and depression. I am asked to consult for medical management. She does complain of some chest congestion. Allergies and Home Medications Allergies Coded Allergies: Penicillins (Verified Allergy, Mild, RASH, 12/02/20) amphetamine (Verified Adverse Reaction, Unknown, 12/02/20) dextroamphetamine (Verified Adverse Reaction, Unknown, 12/02/20) gemfibrozil (Verified Adverse Reaction, Unknown, 12/02/20) sertraline (Verified Adverse Reaction, Unknown, 12/02/20) trazodone (Verified Adverse Reaction, Unknown, 12/02/20) Home Medications Bupropion HCl Unknown Strength Tab.er.24h, Unknown Dose PO DAILY WITH FOOD, (Reported) Last Action: Last Taken Edited Cholecalciferol (Vitamin D3) 2,000 Unit Tablet, 4,000 UNITS PO DAILY, (Reported) Last Action: Last Taken Edited Cyclobenzaprine HCl 10 Mg Tablet, 5-10 MG PO HS, (Reported) Last Action: Last Taken Edited Docusate Sodium 100 Mg Tablet, 100 MG PO DAILY, (Reported) Last Action: Last Taken Edited Ezetimibe 10 Mg Tablet, 10 MG PO HS, (Reported) Last Action: Last Taken Edited Fluoxetine HCl 40 Mg Capsule, 40 MG PO HS, (Reported) Last Action: Last Taken Edited Melatonin 10 Mg Capsule, 10 MG PO HS, (Reported) Last Action: Last Taken Edited Naproxen Sodium 220 Mg Capsule, 440 MG PO Q12H, (Reported) Last Action: Last Taken Edited [place] 3 Polyunsat Fatty Acids 1,000 Mg Cap, 1,000 MG PO DAILY, (Reported) Last Action: Last Taken Edited Vitamin E Mixed 200 Unit Tablet, 200 UNIT PO DAILY, (Reported) Last Action: Last Taken Edited [Cbd Oil] , 450 MG PO BID PRN for PAIN-MILD, (Reported) Last Action: Last Taken Edited Patient Home Medication List Home Medication List Reviewed: Yes Past Cziptpx-Zslrqk-Oblqjb Hx Past Med/Social Hx: Reviewed Nursing Past Med/Soc Hx Patient Social History Alcohol Use: Denies Use Smoking Status: Never a Smoker 2nd Hand Smoke Exposure: No Recent Hopitalizations: No Have you traveled recently?: No Alcohol Use?: No Immunizations Up To Date Date of Pneumonia Vaccine: May 10, 2020 Date of Influenza Vaccine: May 10, 2020 Seasonal Allergies Seasonal Allergies: Yes (MILD) Past Medical History Surgeries: Yes (RIGHT KNEE X6 AND TKR; D&C ) Appendectomy, Gallbladder, Joint Replacement, Orthopedic Respiratory: Yes Sleep Apnea Currently Using CPAP: Yes Currently Using BIPAP: No Cardiac: Yes High Cholesterol Neurological: Yes (HX SYNCOPE X2) Headaches /Migraines Reproductive Disorders: No Female Reproductive Disorders: Menstrual Problems, Ovarian Cyst INTERNATIONAL BANK MANAGER History: Menopausal Sexually Transmitted Disease: No HIV/AIDS: No Genitourinary: Yes Kidney Stones Gastrointestinal: Yes ("SOMETIMES AN INFECTION") Chronic Constipation, Ulcer Musculoskeletal: Yes (OSTEOARTHRITIS- KNEES/HIPS, NECK) Arthritis, Fibromyalgia, Rheumatoid Arthritis Endocrine: No HEENT: Yes (GLASSES) Loss of Vision: Denies Hearing Impairment: Denies Cancer: No Psychosocial: Yes Depression Integumentary: No Blood Disorders: No Adverse Reaction/Blood Tranf: No (N/A) Review of Systems Review of Systems General: No Chills, No Night Sweats, No Fatigue, No Malaise, No Appetite, No Other HEENT: No Head Aches, No Visual Changes, No Eye Pain, No Ear Pain, No Dysphasia, No Sinus Congestion, No Post Nasal Drip, No Sore Throat, No Other Pulmonary: Other (chest congestion) Cardiovascular: No: Chest Pain, Palpitations, Orthopnea, Paroxysmal Noc. Dyspnea, Edema, Lt Headedness, Other Gastrointestinal: No: Nausea, Vomiting, Abdominal Pain, Diarrhea, Constipation, Melena, Hematochezia, Other Genitourinary: No Dysuria, No Frequency, No Incontinence, No Hematuria, No Retention, No Other Musculoskeletal: leg pain (left knee) Neurological: No: Weakness, Numbness, Incoordination, Change in speech, Confusion, Seizures, Other All Other Systems Reviewed All Other Systems Reviewed: Yes Physical Exam Vital Signs Vital Signs - First Documented 12/02/20 06:31 Temp 36.6 Pulse 92 Resp 16 B/P (MAP) 131/84 (100) Pulse Ox 98 O2 Delivery Room Air Capillary Refill : Less Than 3 Seconds Height, Weight, BMI Height: '" Weight: lbs. oz. kg; 32.96 BMI Method: General Appearance: Mild Distress (due to pain) Neck: Supple Respiratory: Lungs Clear Cardiovascular: Regular Rate, Rhythm Gastrointestinal: Normal Bowel Sounds, Non Tender, Soft Rectal: Deferred Extremity: Non Tender, No Calf Tenderness, No Pedal Edema Neurologic/Psychiatric: Alert, Oriented x3, Other Skin: Warm/Dry, Other (left knee with dry dressing in place) Comments Laboratory Tests 12/03/20 05:48: Hemoglobin 10.4L, Hematocrit 31L Assessment/Plan Assessment/Plan Admission Dx 1. Advanced Left Knee Osteoarthritis--S/P Left TKA--pain control, PT, lovenox for DVT prophylaxis, plan is DC tomorrow after morning therapies 2. Depression--resume prozac/wellbutrin 3. NORAH--on home CPAP 4. Chest Congestion--use IS, add claritin and mucinex 5. Mild Post-op Anemia--repeat H/H tomorrow NANCY WEBB DO December 03, 2020 19:13
[2020-12-03] MEDS: guaiFENesin (MUCINEX) 600 MG TAB PO SCH (21:05)
[2020-12-03] MEDS: buPROPion SR 100 MG (WELLBUTRIN SR) TAB PO SCH (21:31)
[2020-12-04] MEDS: NS IV 1000 ML 1,000 ML IV SCH (00:23)
[2020-12-04 04:13] VITALS: BP 130/69
--- NOTE | 2020-12-04 04:47 | DISCHARGE SUMMARY ---
DATE OF SERVICE: DIAGNOSES: 1. Left knee primary osteoarthritis. 2. Rheumatoid arthritis. 3. Sleep apnea. PROCEDURE: Left total knee arthroplasty. SUMMARY: The patient is a 60-year-old female who underwent a left total knee arthroplasty on the day of admission postoperatively. She progressed well. At the time of discharge, her wound was clean and dry. She had no calf tenderness. Negative Homans sign. She was tolerating diet well and tolerating pain with oral pain medication. CONDITION AT DISCHARGE: Good. DISCHARGE DIET: Regular. ACTIVITIES: Weightbearing as tolerated with a walker. Home physical therapy will be arranged. DISCHARGE MEDICATIONS: Percocet for pain in addition to her home medications and one aspirin per day for 30 days. Job ID: [id number] DocumentID: [id number] Dictated Date: 12/03/2020 17:34:58 General Duty Nurse Date: 12/04/2020 04:46:36 Dictated By: JESS LOMBARDI MD
[2020-12-04 05:30] LABS: HEMOGLOBIN 11.1 g/dL (11.5-16.0)
[2020-12-04] MEDS: MULTIVIT W/MINERALS TAB (THERAGRAN M) PO SCH (06:05)
--- NOTE | 2020-12-04 07:02 | Progress Note ---
Standard Progress Note Progress Notes/Assess & Plan Date Seen by a Provider: December 04, 2020 Time Seen by a Provider: 07:01 Progress/Assessment & Plan post op check no complaints radiographs--HW well positioned without fracture LLE--intact DF and PF with sensation intact throughout. 2 plus DP pulse with brisk cap refill s/p LTKA mobilize as able Final Diagnosis no complaints Vital Signs Date Time Temp Pulse Resp B/P (MAP) Pulse Ox O2 Delivery O2 Flow Rate FiO2 12/04/20 04:13 36.2 112 18 130/69 (89) 96 Room Air 12/03/20 23:55 36.4 110 18 145/72 (96) 96 Room Air 12/03/20 21:00 Room Air 12/03/20 19:57 36.6 113 20 144/78 (100) 98 Room Air 12/03/20 15:53 36.6 111 18 118/61 (80) 98 Room Air 12/03/20 11:13 36.9 98 20 116/61 (79) 97 Room Air 12/03/20 09:00 Room Air 12/03/20 08:00 36.0 88 18 115/72 (86) 97 Room Air I & O 12/04/20 07:00 Intake Total 2530 ml Balance 2530 ml Laboratory Tests Test 12/04/20 05:06 Range/Units Hemoglobin 11.1 L 11.5-16.0 g/dL Hematocrit 34 L 35-52 % L knee incision clean and dry. No calf tenderness. Neg Aurelio 's s/p L TKA doing well DC home after PT today JESS LOMBARDI MD December 04, 2020 07:02
[2020-12-04 07:25] VITALS: BP 134/71
[2020-12-04] MEDS: ASPIRIN E.C. 81 MG (ECOTRIN) TAB PO SCH (07:53)
[2020-12-04] MEDS: guaiFENesin (MUCINEX) 600 MG TAB PO SCH ×2 (07:53→19:43)
[2020-12-04] MEDS: SENNA W/DOCUSATE (SENOKOT S) TABLET PO SCH ×2 (07:53→19:43)
[2020-12-04] MEDS: oxyCODONE/APAP 5/325MG (PERCOCET 5) TABLET PO PRN ×4 (07:54→20:47)
[2020-12-04] MEDS: ENOXAPARIN 30 MG/0.3 ML (LOVENOX) SYR SC SCH ×2 (07:54→19:50)
[2020-12-04] MEDS: morphine INJ 4 MG/ML 1 ML (VIAL/SYRINGE) IVP PRN ×3 (07:54→22:26)
[2020-12-04] MEDS: LORATADINE (CLARITIN) 10 MG TAB PO SCH (07:54)
[2020-12-04] MEDS: FLUoxetine HCL 20 MG (PROzac) CAP PO SCH (08:00)
[2020-12-04] MEDS: buPROPion SR 100 MG (WELLBUTRIN SR) TAB PO SCH ×2 (08:01→17:22)
--- NOTE | 2020-12-04 10:50 | Physical Therapy Daily Note ---
PT Daily Note-Current Subjective Patient very tearful. Patient left LE was elevated with 2 pillows with noted knee flexed position 60 degrees with patient having difficulty with extending it. Pain Numeric Pain Scale: 10-Worst Possible Pain Location: Left Location Body Site: Knee Pain Description: Acute Comment: with med issued Mental Status Patient Orientation: Normal For Age Transfers SCALE: Activities may be completed with or without assistive devices. 7-Qbybnemtiz-holrgwk completes the activity by him/herself with no assistance from a helper. 5-Set-up or Clean-up Assistance-helper sets up or cleans up; patient completes activity. [place] assists only prior to or following the activity. 4-Supervision or Touching Assistance-helper provides verbal cues and/or touching/steadying and/or contact guard assistance as patient completes activity. Assistance may be provided throughout the activity or intermittently. 3-Partial/Moderate Assistance-helper does LESS THAN HALF the effort. [place] lifts, holds or supports trunk or limbs, but provides less than half the effort. 2-Substantial/Maximal Assistance-helper does MORE THAN HALF the effort. [place] lifts or holds trunk or limbs and provides more than half the effort. 9-Fwtelksee-xcmrfv does ALL the effort. Patient does none of the effort to complete the activity. Or, the assistance of 2 or more helpers is required for the patient to complete the activity. If activity was not attempted, code reason: 7-Patient Refused. 9-Not Applicable-not attempted and the patient did not perform the activity before the current illness, exacerbation or injury. 10-Not Attempted due to Environmental Limitations-(lack of equipment, weather restraints, etc.). 88-Not Attempted due to Medical Conditions or Safety Concerns. Roll Left & Right (QC): 6 Sit to Lying (QC): 6 Lying to Sitting/Side of Bed(Q: 6 Sit to Stand (QC): 3 Chair/Zbw-fq-Pwyop Xfer(QC): 3 Toilet Transfer (QC): 3 patient refuses to weight bear left LE with transfers due to pain. Patient again becomes very tearful. Patient required 15 minutes to attain stand after sitting EOB Weight Bearing Left Lower Extremity: Left Weight Bearing/Tolerated Gait Training Does the Patient Walk?: Yes Distance: 275' x 2 Walk 10 feet (QC): 4 (SBA) Walk 50 ft with 2 Turns(QC): 4 (SBA) Walk 150 ft (QC): 4 (SBA) Walking 10ft/uneven surface-QC: 4 (SBA) Gait Assistive Device: FWW very slow,step to gait sequence with multiple standing recovery periods due to anxiety (per patient report)/patient minimally weight bears left LE with PT constant VC's to increase weight bearing to decrease pain and increase mobility. Patient voices understanding, however, is unable to perform physically. Stair Training Stair Training: Handrails/: 1 handrail #of Steps: 3 1 Step (curb) (QC): 3 Stairs: Pattern: Step to Exercises Supine Ex: Ankle pumps, Quad Set, Heel Slides, Straight leg raise Supine Reps: 12 (patient lacks 20 degrees extension with PT assist with patient resisting and becoming very tearful due to pain) Seated Therapy Exercises: Long arc quads Seated Reps: 15 (PT assist to attain left knee extension with patient throwing herself back on the bed to resist this activity) Treatments CPM 0-80 degrees with polar pack left LE in place after session Assessment Patient not progressing with left knee ROM. Patient resist all left knee ROM and lacks 20 degrees extension and prefers to ER LE for comfort. Education with patient on importance or performing HEP issued by physician. Patient voices understanding, however, this PT voices concern to patient, RN and surgeon on patient's LOF and possible negative effects of dismissing to home and complying with performing HEP and mobility as she should. Patient progressing very slowly and has difficulty with following direction to perform activity to progress per protocol. PT Chcf Goals Chcf Goals PT Head Of Science Goals Time Frame: Dec 09, 2020 Roll Left & Right (QC): 6 Sit to Lying (QC): 6 Lying-Sitting on Side/Bed(QC): 6 Sit to Stand (QC): 5 Chair/Qas-kq-Rckab Xfer(QC): 5 Walk 10 feet (QC): 5 Walk 50ft with 2 Turns (QC): 5 Walk 150 ft (QC): 5 1 Step (curb) (QC): 5 4 Steps (QC): 5 PT Plan Treatment/Plan Treatment Plan: Continue Plan of Care Treatment Plan: Bed Mobility, Education, Functional Activity Jarrett, Functional Strength, Gait, Safety, Therapeutic Exercise, Transfers Treatment Duration: Dec 09, 2020 Frequency: 11 times per week Estimated Hrs Per Day: .25 hour per day Patient and/or Family Agrees t: Yes Time/GCodes Time In: 815 Time Out: 900 Total Billed Treatment Time: 45 Total Billed Treatment 1 visit EX 15 min FA 20 min GT 10 min KENDALL THOMAS PT December 04, 2020 10:49
[2020-12-04 11:15] VITALS: BP 134/63
--- NOTE | 2020-12-04 13:15 | Occupational Ther Daily Note ---
OT Current Status-Daily Note Subjective Pt asleep upon OT entry 2x this am: 1030 and 1150. Pt's nurse aide states she is getting pt up for food this afternoon. OT assists in task. Pt wakes easily, agrees to tx. States 8/10 pain in L knee. Unhooked from CPM and polar pack. Pt and assistant director of nursing state pt to d/c home today. Mental Status/Objective Patient Orientation: Person, Place, Situation Attachments: Other-See Comments (polar pack, CPM) ADL-Treatment Therapy Code Descriptions/Definitions Functional [place] Measure: 0=Not Assessed/NA 4=Minimal Assistance 1=Total Assistance 5=Supervision or Setup 2=Maximal Assistance 6=Modified [place] 3=Moderate Assistance 7=Complete IndependenceSCALE: Activities may be completed with or without assistive devices. 7-Kgalctlznm-gqvnbre completes the activity by him/herself with no assistance from a helper. 5-Set-up or Clean-up Assistance-helper sets up or cleans up; patient completes activity. [place] assists only prior to or following the activity. 4-Supervision or Touching Assistance-helper provides verbal cues and/or touching/steadying and/or contact guard assistance as patient completes activity. Assistance may be provided throughout the activity or intermittently. 3-Partial/Moderate Assistance-helper does LESS THAN HALF the effort. [place] lifts, holds or supports trunk or limbs, but provides less than half the effort. 2-Substantial/Maximal Assistance-helper does MORE THAN HALF the effort. [place] lifts or holds trunk or limbs and provides more than half the effort. 6-Ethxaeezn-nrwvel does ALL the effort. Patient does none of the effort to complete the activity. Or, the assistance of 2 or more helpers is required for the patient to complete the activity. If activity was not attempted, code reason: 7-Patient Refused. 9-Not Applicable-not attempted and the patient did not perform the activity before the current illness, exacerbation or injury. 10-Not Attempted due to Environmental Limitations-(lack of equipment, weather restraints, etc.). 88-Not Attempted due to Medical Conditions or Safety Concerns. Eating (QC): 6 Oral Hygiene (QC): 6 (per pt/ clinical judgment. ) Bathing Location: L Arm, R Arm, L Upper Leg, R Upper Leg, Chest, Abdomen Shower/Bathe Self (QC): 3 (mod A per assistant director of nursing.) Toileting Hygiene (QC): 3 (mod A: pt able to wipe self) Other Treatment Pt wakes with increased time. Pt sits EOB with increased time/ OT removing CPM and polar pack. Pt requires CGA and min A reaching EOB due to pain in L knee. Upon reaching EOB, pt's RLE shaking. Pt expresses she is taking care of her mother, OT asks about home s/u and pt expresses need to urinate. Pt sit to stand with mod Ax2 from EOB, decreased safety in stance as pt reaches for nursing aides hand and requests assist. Pt redirected to place BUE on walker and push through hands. Pt expresses, 'I'm going to." Pt stands with L knee continued bent. Pt encouraged to bear weight and transfer to commode placed beside bed. Completes transfer with CGA. Sits with limited control to high rise BSC. Pt states has standard toilet in her bathroom, though mother's bathroom has high rise with gbs. Upon questioning, pt states she doesn't believe she can make it to the back room to complete toileting. Pt expresses she plans to use her bathroom. pt requires min A sit to stand with BUE on BSC hand rails. Would require increased assist (max A) for sit to stand from standard toilet without use of gbs. Pt stands and continues to need cues for hand placement. Increased time and decreased safety in stance. Ambulates to chair, sits with limited control with cues for hand placement. Pt is educated on abilities and needs for home d/c. Pt's SW notified of pt's needs if to d/c today, however, also noted that pt is unsafe to go home based on lack of physical support at home, decreased I/ADL ability, decreased sit to stand abilities and lack of equipment/ DME. Education OT Patient Education: Correct positioning, Modified ADL techniques, Purpose of tx/functional activities, Safety issues, Transfer techniques Teaching Recipient: Patient Teaching Methods: Demonstration, Discussion Response to Teaching: Verbalize Understanding, Reinforcement Needed OT Short Term Goals Short Term Goals Time Frame: December 02, 2020 OT Cryptozoologist Goals Cryptozoologist Goals Time Frame: Dec 16, 2020 Eating (QC): 6 Oral Hygiene (QC): 6 Toileting Hygiene (QC): 6 Shower/Bathe Self (QC): 4 Upper Body Dressing (QC): 6 Lower Body Dressing (QC): 4 On/Off Footwear (QC): 6 Additional Goals: 1-Demonstrate ADL Tasks, 2-Verbalize Understanding, 3- ImproveStrength/[place] 1=Demonstrate adherence to instructed precautions during ADL tasks. 2=Patient will verbalize/demonstrate understanding of assistive devices/modifications for ADL. 3=Patient will improve strength/tolerance for activity to enable patient to perform ADL's. OT Education/Plan Problem List/Assessment Assessment: Decreased Activ Tolerance, Decreased Safety Aware, Decreased UE Strength, Dependent Transfers, Edema, Impaired Bed Mobility, Impaired Funct Balance, Impaired I ADL's, Impaired Self-Care Skills Discharge Recommendations Plan/Recommendations: Continue POC Therapy Discharge Recommendati: Scheduled Assistance, Home & Family, Post Acute OT Equpiment Recommendations-D/C: Bedside Commode, Hip Kit Treatment Plan/Plan of Care Treatment,Training & Education: Yes Patient would benefit from OT for education, treatment and training to promote independence in ADL's, mobility, safety and/or upper extremity function for ADL's. Plan of Care: ADL Retraining, Functional Mobility, UE Funct Exercise/Act Treatment Duration: Dec 16, 2020 Frequency: 5 times per week Estimated Hrs Per Day: .25 hour per day Agreement: Yes Rehab Potential: Good Time/GCodes Start Time: 11:50 Stop Time: 12:19 Total Time Billed (hr/min): 29 Billed Treatment Time 1, ADL, FA (29) AMELIA VALERIO OTR December 04, 2020 13:15
--- NOTE | 2020-12-04 14:29 | Physical Therapy Daily Note ---
PT Daily Note-Current Subjective Patient reluctantly agrees to PT. Pain Numeric Pain Scale: 10-Worst Possible Pain Location: Left Pain Description: Acute Comment: with meds Mental Status Patient Orientation: Normal For Age Transfers SCALE: Activities may be completed with or without assistive devices. 0-Gkrtfjyfzw-beowfid completes the activity by him/herself with no assistance from a helper. 5-Set-up or Clean-up Assistance-helper sets up or cleans up; patient completes activity. [place] assists only prior to or following the activity. 4-Supervision or Touching Assistance-helper provides verbal cues and/or touching/steadying and/or contact guard assistance as patient completes activity. Assistance may be provided throughout the activity or intermittently. 3-Partial/Moderate Assistance-helper does LESS THAN HALF the effort. [place] lifts, holds or supports trunk or limbs, but provides less than half the effort. 2-Substantial/Maximal Assistance-helper does MORE THAN HALF the effort. [place] lifts or holds trunk or limbs and provides more than half the effort. 4-Wbyeqnkxb-uddxed does ALL the effort. Patient does none of the effort to complete the activity. Or, the assistance of 2 or more helpers is required for the patient to complete the activity. If activity was not attempted, code reason: 7-Patient Refused. 9-Not Applicable-not attempted and the patient did not perform the activity before the current illness, exacerbation or injury. 10-Not Attempted due to Environmental Limitations-(lack of equipment, weather restraints, etc.). 88-Not Attempted due to Medical Conditions or Safety Concerns. Sit to Stand (QC): 4 Weight Bearing Left Lower Extremity: Left Weight Bearing/Tolerated Gait Training Does the Patient Walk?: Yes Distance: 200' Walk 10 feet (QC): 4 (SBA) Walk 50 ft with 2 Turns(QC): 4 (SBA) Walk 150 ft (QC): 4 (SBA) Gait Assistive Device: FWW very slow, and antalgic with patient minimally weight bearing left LE Exercises Seated Therapy Exercises: Ankle pumps, Long arc quads Seated Reps: 15 (AAROM with patient resisting knee extension (very slow AAROM)) Standing: Sit to Stand (2 sets) Assessment Patient is very resistive with all exercises and mobility. Patient will dismiss to home tomorrow after a.m. PT. PT Alf Goals Ice Guard Inspector Goals PT Ice Guard Inspector Goals Time Frame: Dec 09, 2020 Roll Left & Right (QC): 6 Sit to Lying (QC): 6 Lying-Sitting on Side/Bed(QC): 6 Sit to Stand (QC): 5 Chair/Dyf-uf-Yxlmt Xfer(QC): 5 Walk 10 feet (QC): 5 Walk 50ft with 2 Turns (QC): 5 Walk 150 ft (QC): 5 1 Step (curb) (QC): 5 4 Steps (QC): 5 PT Plan Treatment/Plan Treatment Plan: Continue Plan of Care Treatment Plan: Bed Mobility, Education, Functional Activity [place], Functional Strength, Gait, Safety, Therapeutic Exercise, Transfers Treatment Duration: Dec 09, 2020 Frequency: 11 times per week Estimated Hrs Per Day: .25 hour per day Patient and/or Family Agrees t: Yes Time/GCodes Time In: 1325 Time Out: 1400 Total Billed Treatment Time: 35 Total Billed Treatment 1 visit EX 18 min GT 17 min KENDALL THOMAS PT December 04, 2020 14:29
[2020-12-04 16:25] VITALS: BP 126/80
[2020-12-05] MEDS: oxyCODONE/APAP 5/325MG (PERCOCET 5) TABLET PO PRN ×6 (00:02→15:10)
[2020-12-05 00:03] VITALS: BP 121/67
[2020-12-05 05:41] LABS: HEMOGLOBIN 10.8 g/dL (11.5-16.0)
[2020-12-05] MEDS: MULTIVIT W/MINERALS TAB (THERAGRAN M) PO SCH (06:22)
--- NOTE | 2020-12-05 06:46 | Progress Note ---
Standard Progress Note Progress Notes/Assess & Plan Date Seen by a Provider: December 05, 2020 Time Seen by a Provider: 06:45 Progress/Assessment & Plan post op check no complaints radiographs--HW well positioned without fracture LLE--intact DF and PF with sensation intact throughout. 2 plus DP pulse with brisk cap refill s/p LTKA mobilize as able Final Diagnosis patient feeling much better today pain managed Vital Signs Date Time Temp Pulse Resp B/P (MAP) Pulse Ox O2 Delivery O2 Flow Rate FiO2 12/05/20 00:03 36.3 109 19 121/67 (85) 95 NIV CPAP 12/04/20 20:00 Room Air 12/04/20 16:25 36.3 112 19 126/80 (95) 97 Room Air 12/04/20 11:15 36.6 116 18 134/63 (86) 95 Room Air 12/04/20 08:00 Room Air 12/04/20 07:25 36.6 113 18 134/71 (92) 96 NIV CPAP I & O 12/05/20 07:00 Intake Total 1870 ml Balance 1870 ml Laboratory Tests Test 12/05/20 05:22 Range/Units Hemoglobin 10.8 L 11.5-16.0 g/dL Hematocrit 33 L 35-52 % LLE--dressing intact. echymotic. no calf tenderness s/p LTKA improved DC after PT JESS LOMBARDI MD December 05, 2020 06:46
[2020-12-05 08:00] VITALS: BP 110/74
[2020-12-05] MEDS: ENOXAPARIN 30 MG/0.3 ML (LOVENOX) SYR SC SCH (08:53)
[2020-12-05] MEDS: guaiFENesin (MUCINEX) 600 MG TAB PO SCH (08:53)
[2020-12-05] MEDS: SENNA W/DOCUSATE (SENOKOT S) TABLET PO SCH (08:53)
[2020-12-05] MEDS: LORATADINE (CLARITIN) 10 MG TAB PO SCH (08:53)
[2020-12-05] MEDS: buPROPion SR 100 MG (WELLBUTRIN SR) TAB PO SCH (08:53)
[2020-12-05] MEDS: ASPIRIN E.C. 81 MG (ECOTRIN) TAB PO SCH (08:53)
--- NOTE | 2020-12-05 08:54 | Physical Therapy Daily Note ---
PT Daily Note-Current Subjective Pt sitting up in chair upon arrival to room, agreeable to PT treatment. reports pain level of 5/10 in L knee prior to treatment. Appearance Following session, pt returned to recliner. Call light, tray and breakfast all within reach.Polar pack on L knee. All needs met Mental Status Patient Orientation: Person, Place, Situation Transfers SCALE: Activities may be completed with or without assistive devices. 6-Ilaszktxbf-uqeitai completes the activity by him/herself with no assistance from a helper. 5-Set-up or Clean-up Assistance-helper sets up or cleans up; patient completes activity. [place] assists only prior to or following the activity. 4-Supervision or Touching Assistance-helper provides verbal cues and/or touching/steadying and/or contact guard assistance as patient completes activity. Assistance may be provided throughout the activity or intermittently. 3-Partial/Moderate Assistance-helper does LESS THAN HALF the effort. [place] lifts, holds or supports trunk or limbs, but provides less than half the effort. 2-Substantial/Maximal Assistance-helper does MORE THAN HALF the effort. [place] lifts or holds trunk or limbs and provides more than half the effort. 2-Pguppkwpr-uniyoq does ALL the effort. Patient does none of the effort to complete the activity. Or, the assistance of 2 or more helpers is required for the patient to complete the activity. If activity was not attempted, code reason: 7-Patient Refused. 9-Not Applicable-not attempted and the patient did not perform the activity before the current illness, exacerbation or injury. 10-Not Attempted due to Environmental Limitations-(lack of equipment, weather restraints, etc.). 88-Not Attempted due to Medical Conditions or Safety Concerns. Sit to Stand (QC): 4 Weight Bearing Left Lower Extremity: Left Weight Bearing/Tolerated Gait Training Distance: 250' Walk 10 feet (QC): 4 Walk 50 ft with 2 Turns(QC): 4 Walk 150 ft (QC): 4 Gait Assistive Device: FWW Pt with slow, steady gait sequence. Decreased heel strike on (L) and decreased WB on LLE, despite cueing. Assessment Current Status: Fair Progress Pt tolerated activity well this date, would benefit from continued skilled PT to ensure safety upon DC home from hospital. PT Cognos Bi Developer Goals Cognos Bi Developer Goals PT Fpc Goals Time Frame: Dec 09, 2020 Roll Left & Right (QC): 6 Sit to Lying (QC): 6 Lying-Sitting on Side/Bed(QC): 6 Sit to Stand (QC): 5 Chair/Fvv-sr-[place] Xfer(QC): 5 Walk 10 feet (QC): 5 Walk 50ft with 2 Turns (QC): 5 Walk 150 ft (QC): 5 1 Step (curb) (QC): 5 4 Steps (QC): 5 PT Plan Problem List Problem List: Activity Tolerance, Functional Strength, Safety, Balance, Gait, Transfer, Bed Mobility, ROM Treatment/Plan Treatment Plan: Continue Plan of Care Treatment Plan: Bed Mobility, Education, Functional Activity [place], Functional Strength, Gait, Safety, Therapeutic Exercise, Transfers Treatment Duration: Dec 09, 2020 Frequency: 11 times per week Estimated Hrs Per Day: .25 hour per day Patient and/or Family Agrees t: Yes Time/GCodes Time In: 745 Time Out: 813 Total Billed Treatment 1 visit EX (10') GT (15') LETA BOOTHE PT December 05, 2020 08:54
[2020-12-05] MEDS: FLUoxetine HCL 20 MG (PROzac) CAP PO SCH (09:19)
--- NOTE | 2020-12-05 18:29 | DISCHARGE SUMMARY ---
DATE OF SERVICE: ADDENDUM The patient's discharged date was moved to 12/05/2020 due to poor pain control and mobility issues. Once her pain was managed, she was able to mobilize independently. There was a samy discussion with the patient regarding her safety at home. She reports that her son will be there to help her. She does feel comfortable going home. I explained to her that the other option is to look at fpc placement. She feels that as long as her pain is managed that she should able to do fine at home. She was provided prescription for Dilaudid for a short course and then to transition to Percocet. Job ID: [id number] DocumentID: [id number] Dictated Date: 12/05/2020 06:44:51 Weight Checker Date: 12/05/2020 18:27:42 Dictated By: JESS LOMBARDI MD
== END 2020-12-05 16:35 | disposition home health service (06) | DRG 470 ==
LOC: 4TH 05:51 → SURG 05:52 → 4TH 11:01
PROVIDERS: ADMIT Orthopaedic Surgery; ATTEND Orthopaedic Surgery
PROC: 0SRD0J9 Replacement of Left Knee Joint with Synthetic Substitute, Cemented, Open Approach (ICD-10-PCS; principal; 2020-12-02 07:57)
DX: M17.12 Unilateral primary osteoarthritis, left knee (principal); D62 Acute posthemorrhagic anemia; Z96.651 Presence of right artificial knee joint; G47.33 Obstructive sleep apnea (adult) (pediatric); F32.9 Major depressive disorder, single episode, unspecified; E78.00 Pure hypercholesterolemia, unspecified; G43.909 Migraine, unspecified, not intractable, without status migrainosus; M06.9 Rheumatoid arthritis, unspecified; M79.7 Fibromyalgia; R09.89 Other specified symptoms and signs involving the circulatory and respiratory systems
CPT/HCPCS: 36415; 73560; 85014; 85018; 86850; 86900; 86901; 94664

== ENCOUNTER → 2023-06-05 | Outpatient (CLI) | payer MEDICARE, MEDICAID ==
[~2023-06-05] MED LIST changes: +CYCL10TA25 PO; -CYCL10TA9 PO; -EZET10TA17 PO; +EZET10TA83 PO
== END ==
LOC: CARD 09:47
PROVIDERS: ATTEND Internal Medicine Cardiovascular Disease
DX: I25.10 Atherosclerotic heart disease of native coronary artery without angina pectoris (principal); I10 Essential (primary) hypertension
CPT/HCPCS: 93306